=== PATIENT | female | born 1940 | race Caucasian/White ===

== ENCOUNTER → 2018-04-08 | Day surgery (SDC) | payer MEDICARE, OTHER ==
[~2018-04-08] MED LIST: Propofol 200 MG/20 ML SDV IV ONE
[2018-04-08] MEDS: Lactated Ringers 1,000 ML IV SCH (08:00)
--- NOTE | 2018-04-08 11:13 | OR ---
DATE OF OPERATION: 04/08/2018 PREOPERATIVE DIAGNOSIS: POSITIVE COLOGUARD. POSTOPERATIVE DIAGNOSIS: POSITIVE COLOGUARD. SURGEON: Rickey Freeman MD PROCEDURE: FULL-LENGTH COLONOSCOPY WITH POLYP REMOVAL X8. ANESTHESIA: CHANGEOVER OPERATOR. COMPLICATIONS: None. SPECIMEN: Eight separate sessile adenomas, see report. FINDINGS: 1. Full-length colonoscopy. 2. Severe sigmoid diverticulosis. 3. Sessile adenomas x8. RECOMMENDATIONS: Followup colonoscopy in 3 years pending path reports. INDICATIONS: The patient has never had a prior colonoscopy. She was recently seen for a physical and had a positive Cologuard. She was sent for diagnostic colonoscopy. DESCRIPTION OF PROCEDURE: The patient was prepped and draped, placed in the left lateral decubitus position. A lubricated Olympus colonoscope was inserted and easily advanced to the cecum. We were able to directly visualize the ileocecal valve and appendiceal orifice. The bowel prep was excellent. Upon withdrawal of the scope, the cecum and ascending colon were unremarkable. At the hepatic flexure, the patient had 2 flat sessile adenomas both on the back edge of the haustral fold, hard to get a snare around these, we removed both with forceps biopsies x2 in their entirety. The rest of the transverse colon was unremarkable. Right at the splenic flexure, the patient had a 3rd small sessile polyp removed with a forceps biopsy x2. At the distal descending colon and throughout the entire sigmoid, the patient had severe diverticular disease without any inflammatory changes. She had 3 more small sessile polyps in the sigmoid colon at 70, 50, and 40 cm, all removed, the ones at 70 and 40 cm with forceps, the sigmoid was the largest of the 3, we were able to remove that with a snare and suction into polyp trap. At the proximal rectal vault, the patient had her last sessile polyp slightly more stalked and typical of a tubular adenoma, removed with a snare and suctioned into polyp trap #2 without complication. The rectal vault otherwise was unremarkable. Retroflexion of the scope in the rectum showed no anal lesions. Air was suctioned, scope removed without complication. JUANCARLOS/CLARISA /[id number]
== END ==
LOC: CC.SDS 07:51
PROVIDERS: ATTEND Family Medicine
DX: R19.5 Other fecal abnormalities (principal); D12.3 Benign neoplasm of transverse colon; D12.7 Benign neoplasm of rectosigmoid junction; D12.8 Benign neoplasm of rectum; K63.5 Polyp of colon; K57.30 Diverticulosis of large intestine without perforation or abscess without bleeding; I10 Essential (primary) hypertension; E78.5 Hyperlipidemia, unspecified; E03.9 Hypothyroidism, unspecified; Z87.891 Personal history of nicotine dependence; Z79.890 Hormone replacement therapy; Z79.899 Other long term (current) drug therapy
CPT/HCPCS: J2704; J7120

== ENCOUNTER → 2022-06-19 | Day surgery (SDC) | payer MEDICARE, OTHER ==
[~2022-06-19] MED LIST changes: +Ketamine 200 MG/20 ML MDV ONE; +Lactated Ringers 1,000 ML IV SCH; -Propofol 200 MG/20 ML SDV IV ONE; +Propofol 200 MG/20 ML SDV ONE; +fentaNYL 50 MCG/ML SDV ONE
== END ==
LOC: CC.SDS 07:52
PROVIDERS: ATTEND Family Medicine
DX: Z12.11 Encounter for screening for malignant neoplasm of colon (principal); K63.5 Polyp of colon; K57.30 Diverticulosis of large intestine without perforation or abscess without bleeding; I10 Essential (primary) hypertension; E78.5 Hyperlipidemia, unspecified; E03.9 Hypothyroidism, unspecified; R73.01 Impaired fasting glucose; Z79.899 Other long term (current) drug therapy; Z79.890 Hormone replacement therapy; Z98.890 Other specified postprocedural states; Z87.891 Personal history of nicotine dependence
CPT/HCPCS: 00812; 88305; J2704; J3010; J3490; J7120